=== PATIENT | male | born 1970 | race Caucasian/White ===

== ENCOUNTER 2020-05-13 15:18 | Inpatient (IN) | payer MEDICAID ==
[~2020-05-13] VITALS: Ht 172.7 cm; Wt 84.2 kg
[2020-05-13] MEDS ORDERED: LORazepam 2 MG TABLET PO PRN (19:15)
[2020-05-13] MEDS ORDERED: HydrOXYzine PAMOATE 50 MG CAPSULE PO PRN (19:15)
[2020-05-13] MEDS ORDERED: MAG HYDROX/AL HYDROX/SIMETH ES 30 ML SUSPENSION UDCUP PO PRN (19:15)
[2020-05-13] MEDS ORDERED: PROMETHAZINE HCL 25 MG TABLET PO PRN (19:15)
[2020-05-13] MEDS ORDERED: ACETAMINOPHEN 325 MG TABLET PO PRN (19:15)
[2020-05-13] MEDS ORDERED: ZOLPIDEM TARTRATE 10 MG TABLET PO PRN (19:15)
[2020-05-13] MEDS ORDERED: TUBERCULIN, PURIFIED PROTEIN DERIVATIVE 5 TU/0.1 ML SYRINGE ID ONE (19:15)
[2020-05-13] MEDS ORDERED: GuaiFENesin/D-METHORPHAN [SUGAR-FREE] 200-20MG/10 ML SYRUP UDCUP PO PRN (19:15)
[2020-05-13] MEDS ORDERED: OLANZapine 5 MG RAPDIS TABLET PO PRN (19:15)
[2020-05-13] MEDS ORDERED: MAGNESIUM HYDROXIDE SUSPENSION 30 ML UDCUP PO PRN (19:15)
[2020-05-13] MEDS ORDERED: LOPERAMIDE HCL 2 MG CAPSULE PO PRN (19:15)
[2020-05-13 19:29] VITALS: BP 125/76
[2020-05-13] MEDS ORDERED: NICOTINE POLACRILEX 4 MG LOZENGE PO PRN (19:45)
[2020-05-13] MEDS ORDERED: PNEUMOCOCCAL VACCINE POLYVALENT 0.5 ML VIAL [PPSV23] IM ONE (19:45)
[2020-05-13] MEDS ORDERED: OLANZapine 5 MG RAPDIS TABLET PO SCH (21:00)
[2020-05-14 06:10] VITALS: BP 110/65
[2020-05-14 06:56] LABS: BASOPHILS % (AUTO) 0.7 % (0.0-2.0); EOSINOPHILS % (AUTO) 2.4 % (1.0-6.0); HEMATOCRIT 40.8 % (41-53); HEMOGLOBIN 13.7 g/dL (13.5-17.5); LYMPHOCYTES # (AUTO) 3.8 K/uL (1.0-4.8); LYMPHOCYTES % (AUTO) 37.2 % (22.0-44.0); MEAN CORPUSCULAR HEMOGLOBIN 29.9 pg (26.0-34.0); MEAN CORPUSCULAR HGB CONC 33.5 G/dL (31.0-37.0); MEAN CORPUSCULAR VOLUME 89 fL (80-100); MONOCYTES # (AUTO) 0.8 K/uL (0.1-1.0); MONOCYTES % (AUTO) 7.5 % (2.0-9.0); NEUTROPHILS # (AUTO) 5.4 K/uL (1.8-7.7); NEUTROPHILS % (AUTO) 52.2 % (40.0-70.0); PLATELET COUNT (AUTO) 288 K/uL (150-450); RED BLOOD CELL COUNT(AUTO) 4.58 MIL/uL (4.50-5.90)
[2020-05-14 07:38] LABS: ALANINE AMINOTRANSFERASE 18 U/L (12-78); ALKALINE PHOSPHATASE 97 U/L (46-116); ANION GAP 4 mmol/L (8-16); ASPARTATE AMINOTRANSFERASE 9 U/L (15-37); BILIRUBIN,TOTAL 0.3 mg/dL (0.1-1.0); CALCIUM, TOTAL 9.2 mg/dL (8.8-10.5); CARBON DIOXIDE 32 mmol/L (22-29); CHLORIDE 104 mmol/L (98-107); CHOL/HDL RATIO 4.7 (4.2-7.3); CHOLESTEROL 165 mg/dL (131-200); CREATININE 1.08 mg/dL (0.60-1.30); FREE T4 (FREE THYROXINE) 0.86 ng/dL (0.76-1.46); GLOMERULAR FILTR. RATE CALC > 60 mL/min (>60); GLUCOSE,RANDOM 90 mg/dL (70-110); HDL CHOLESTEROL 35 mg/dL (40-60); LDL CHOL (CALC.) 107 mg/dL (0-130); POTASSIUM 4.8 mmol/L (3.5-5.1); SODIUM SERUM 140 mmol/L (136-145); THYROID STIMULATING HORMONE 2.71 uIU/mL (0.36-3.74); TOTAL PROTEIN, SERUM 6.5 g/dL (6.4-8.2); TRIGLYCERIDES 116 mg/dL (15-150); UREA NITROGEN, BLOOD 22 mg/dL (7-18)
[2020-05-14 08:13] LABS: HEMOGLOBIN A1C 5.9 % (3.8-5.6)
[2020-05-14 08:14] VITALS: BP 104/66
[2020-05-14] MEDS ORDERED: FLUoxetine HCL 20 MG CAPSULE PO SCH (09:00)
[2020-05-14] MEDS: MULTIVITAMINS WITH MINERALS, THERAPEUTIC TABLET PO SCH (09:03)
[2020-05-14] MEDS: NALTREXONE HCL 50 MG TABLET PO SCH (09:03)
[2020-05-14] MEDS: THIAMINE 100 MG TABLET PO SCH ×2 (09:04→16:24)
[2020-05-14] MEDS: FOLIC ACID 1 MG TABLET PO SCH (09:04)
[2020-05-14 16:06] VITALS: BP 112/72
[2020-05-14] MEDS: GABAPENTIN 300 MG CAPSULE PO SCH ×2 (16:24→20:46)
[2020-05-15 06:57] VITALS: BP 110/69
[2020-05-15 08:15] VITALS: BP 123/66
[2020-05-15] MEDS: MULTIVITAMINS WITH MINERALS, THERAPEUTIC TABLET PO SCH (08:37)
[2020-05-15] MEDS: CITALOPRAM HYDROBROMIDE 20 MG TABLET PO SCH (08:37)
[2020-05-15] MEDS: GABAPENTIN 300 MG CAPSULE PO SCH ×4 (08:37→20:35)
[2020-05-15] MEDS: NALTREXONE HCL 50 MG TABLET PO SCH (08:37)
[2020-05-15] MEDS: FOLIC ACID 1 MG TABLET PO SCH (08:37)
[2020-05-15] MEDS: THIAMINE 100 MG TABLET PO SCH ×2 (08:37→16:34)
[2020-05-15] MEDS ORDERED: ARIPiprazole 15 MG TABLET PO SCH (09:00)
[2020-05-15 16:07] VITALS: BP 121/69
[2020-05-16 06:50] VITALS: BP 115/58
[2020-05-16 08:01] VITALS: BP 107/54
[2020-05-16] MEDS: GABAPENTIN 300 MG CAPSULE PO SCH ×3 (08:45→16:18)
[2020-05-16] MEDS: CITALOPRAM HYDROBROMIDE 20 MG TABLET PO SCH (08:45)
[2020-05-16] MEDS: MULTIVITAMINS WITH MINERALS, THERAPEUTIC TABLET PO SCH (08:45)
[2020-05-16] MEDS: NALTREXONE HCL 50 MG TABLET PO SCH (08:45)
[2020-05-16] MEDS: FOLIC ACID 1 MG TABLET PO SCH (08:45)
[2020-05-16] MEDS: THIAMINE 100 MG TABLET PO SCH ×2 (08:47→16:18)
[2020-05-16] MEDS ORDERED: ARIPiprazole 10 MG TABLET PO SCH (09:00)
[2020-05-16] MEDS: TRIHEXYPHENIDYL HCL 2 MG TABLET PO SCH (16:17)
[2020-05-16 16:23] VITALS: BP 113/68
[2020-05-16] MEDS: ARIPiprazole 10 MG TABLET PO SCH (20:23)
[2020-05-16] MEDS ORDERED: CITALOPRAM HYDROBROMIDE 20 MG TABLET PO SCH (21:00)
[2020-05-17 06:12] VITALS: BP 112/84
[2020-05-17] MEDS: THIAMINE 100 MG TABLET PO SCH ×2 (08:29→16:58)
[2020-05-17] MEDS: MULTIVITAMINS WITH MINERALS, THERAPEUTIC TABLET PO SCH (08:29)
[2020-05-17] MEDS: FOLIC ACID 1 MG TABLET PO SCH (08:29)
[2020-05-17] MEDS: TRIHEXYPHENIDYL HCL 2 MG TABLET PO SCH ×3 (08:29→16:58)
[2020-05-17] MEDS: NALTREXONE HCL 50 MG TABLET PO SCH (08:29)
[2020-05-17 09:17] VITALS: BP 109/71
[2020-05-17] MEDS: GABAPENTIN 300 MG CAPSULE PO SCH (12:38)
[2020-05-17] MEDS: GABAPENTIN 400 MG CAPSULE PO SCH (16:58)
[2020-05-17 16:59] VITALS: BP 132/78
[2020-05-17] MEDS: ARIPiprazole 10 MG TABLET PO SCH (21:00)
[2020-05-17] MEDS: CITALOPRAM HYDROBROMIDE 20 MG TABLET PO SCH (21:00)
[2020-05-18 00:38] VITALS: BP 140/70
[2020-05-18] MEDS: TRIHEXYPHENIDYL HCL 2 MG TABLET PO SCH ×3 (08:27→16:53)
[2020-05-18] MEDS: MULTIVITAMINS WITH MINERALS, THERAPEUTIC TABLET PO SCH (08:28)
[2020-05-18] MEDS: THIAMINE 100 MG TABLET PO SCH ×2 (08:28→16:53)
[2020-05-18] MEDS: FOLIC ACID 1 MG TABLET PO SCH (08:28)
[2020-05-18] MEDS: NALTREXONE HCL 50 MG TABLET PO SCH (08:28)
[2020-05-18 09:23] VITALS: BP 110/65
[2020-05-18] MEDS: GABAPENTIN 400 MG CAPSULE PO SCH ×2 (12:37→16:53)
[2020-05-18 16:00] VITALS: BP 102/61
[2020-05-18] MEDS: CITALOPRAM HYDROBROMIDE 20 MG TABLET PO SCH (20:12)
[2020-05-18] MEDS: ARIPiprazole 10 MG TABLET PO SCH (20:13)
[2020-05-18] MEDS ORDERED: TRIH2TAB3 PO (23:08)
[2020-05-18] MEDS ORDERED: NALT50TA6 PO (23:08)
[2020-05-18] MEDS ORDERED: ARIP10TA8 PO (23:09)
[2020-05-18] MEDS ORDERED: GABA-1201 PO (23:09)
[2020-05-18] MEDS ORDERED: CITA-144 PO (23:10)
[2020-05-19 00:59] VITALS: BP 103/60
[2020-05-19] MEDS ORDERED: CITALOPRAM HYDROBROMIDE 20 MG TABLET PO SCH (21:00)
== END 2020-05-19 08:00 | disposition home or self-care (01) | DRG 885 ==
LOC: B2S 19:00
PROVIDERS: ADMIT Psychiatry & Neurology Psychiatry; ATTEND Psychiatry & Neurology Psychiatry
DX: F25.0 Schizoaffective disorder, bipolar type (principal); R45.851 Suicidal ideations; Z59.0 Homelessness; F12.20 Cannabis dependence, uncomplicated; F15.90 Other stimulant use, unspecified, uncomplicated; F17.200 Nicotine dependence, unspecified, uncomplicated; I10 Essential (primary) hypertension; M10.9 Gout, unspecified; R03.0 Elevated blood-pressure reading, without diagnosis of hypertension
CPT/HCPCS: 83036; 84439; 84443; 86592